=== PATIENT | female | born 1995 | race Caucasian/White ===

== ENCOUNTER 2023-01-20 10:46 | Inpatient (IN) | payer OTHER ==
[2023-01-20] MEDS ORDERED: SODIUM CHLORIDE 0.9% 500 ML INFUS.BAG IV ONE ×2 (10:54→12:48)
[2023-01-20] MEDS ORDERED: ONDANSETRON 4 MG/2 ML VIAL IVPUSH ONE ×2 (11:17→13:39)
[2023-01-20] MEDS ORDERED: ONDANSETRON 4 MG/2 ML VIAL ONE ×5 (11:18→19:22)
[2023-01-20] MEDS ORDERED: FENTANYL CITRATE/PF 50 MCG/ML VIAL ONE ×2 (11:18→12:40)
[2023-01-20 11:49] LABS: BASO % 0.2 % (0-2.0); EOS % 0.2 % (0-4.5); HEMATOCRIT 36.9 % (32.4-45.2); HEMOGLOBIN 12.8 GM/dL (10.7-15.3); LYMPH % 25.7 % (8-40); MCH 31.2 pg (25.7-33.7); MCHC 34.6 g/dl (32.0-36.0); MEAN PLT VOLUME 9.5 fl (7.5-11.1); MONO % 6.7 % (3.8-10.2); NEUT % 67.2 % (42.8-82.8); PLATELET COUNT 268 10^3/uL (134-434); RDW 12.6 % (11.6-15.6); WHITE BLOOD COUNT 9.9 K/mm3 (4.0-10.0)
[2023-01-20 11:58] LABS: ACTIVATED PTT 32.5 SECONDS (25.2-36.5); INR 1.14 (0.83-1.09); PROTHROMBIN TIME (PATIENT) 13.2 SEC (9.7-13.0)
[2023-01-20 12:08] LABS: POTASSIUM 3.7 mmol/L (3.5-5.1)
[2023-01-20 12:10] LABS: CALCIUM 9.3 mg/dL (8.5-10.1)
[2023-01-20 12:11] LABS: ALBUMIN 4.1 g/dl (3.4-5.0); BLOOD UREA NITROGEN 9.6 mg/dL (7-18); MAGNESIUM 2.2 mg/dL (1.8-2.4)
[2023-01-20 12:13] LABS: CREATININE 0.5 mg/dL (0.55-1.3)
[2023-01-20 12:15] LABS: BILIRUBIN,TOTAL 0.5 mg/dL (0.2-1)
[2023-01-20] MEDS ORDERED: BUPIVACAINE HCL/PF 0.5% (5MG/ML) 10 ML VIAL ONE (14:33)
[2023-01-20] MEDS ORDERED: ROCURONIUM BROMIDE 50 MG/5 ML SYRINGE ONE (14:46)
[2023-01-20] MEDS ORDERED: PROPOFOL 20 ML ONE (14:46)
[2023-01-20] MEDS ORDERED: SUCCINYLCHOLINE CHLORIDE 200 MG/10 ML SYRINGE ONE (14:46)
[2023-01-20] MEDS ORDERED: LIDOCAINE HCL/PF 2% SDV 5ML VIAL ONE (14:47)
[2023-01-20] MEDS ORDERED: ETOMIDATE 20 MG/10 ML VIAL IVPUSH ONE (14:56)
[2023-01-20] MEDS ORDERED: DEXAMETHASONE SOD PHOSPHATE 4 MG/1 ML VIAL ONE ×2 (15:40→22:19)
[2023-01-20 15:47] LABS: INR 1.68 (0.83-1.09); PROTHROMBIN TIME (PATIENT) 19.4 SEC (9.7-13.0)
[2023-01-20 15:51] LABS: BASO % 0.1 % (0-2.0); HEMATOCRIT 18.9 % (32.4-45.2); LYMPH % 5.3 % (8-40); MCH 29.7 pg (25.7-33.7); MCHC 33.4 g/dl (32.0-36.0); MEAN CELL VOLUME 88.9 fl (80-96); MEAN PLT VOLUME 9.1 fl (7.5-11.1); MONO % 3.2 % (3.8-10.2); NEUT % 91.4 % (42.8-82.8); PLATELET COUNT 157 10^3/uL (134-434); RBC 2.13 M/mm3 (3.60-5.2); WHITE BLOOD COUNT 16.6 K/mm3 (4.0-10.0)
[2023-01-20 15:57] LABS: HEMOGLOBIN 6.3 GM/dL (10.7-15.3)
[2023-01-20] MEDS ORDERED: GLYCOPYRROLATE 0.2 MG/1 ML VIAL ONE (16:26)
[2023-01-20] MEDS ORDERED: NEOSTIGMINE METHYLSULFATE 0.5 MG/1 ML - 10 ML MDV ONE (16:26)
[2023-01-20 16:33] LABS: LACTIC ACID 2.7 mmol/L (0.4-2.0)
[2023-01-20 17:48] LABS: ANISOCYTOSIS 1+; MACROCYTOSIS 0
[2023-01-20] MEDS ORDERED: ACETAMINOPHEN INJECTION 100 ML IVPB ONE (17:56)
[2023-01-20] MEDS ORDERED: IBUPROFEN 800 MG/8 ML IJ IVPB PRN (18:40)
[2023-01-20] MEDS ORDERED: IBUPROFEN 600 MG TABLET (FP) PO PRN (18:40)
[2023-01-20] MEDS ORDERED: ONDANSETRON 4 MG/2 ML VIAL IVPUSH PRN ×2 (18:40→18:47)
[2023-01-20] MEDS ORDERED: DEXAMETHASONE SOD PHOSPHATE 20 MG/5 ML VIAL IVPB ONE (22:32)
[2023-01-20] MEDS: ELECTROLYTE-148 SOLN 1,000 ML IV SCH (23:52)
[2023-01-20] MEDS: oxyCODONE HCL 5 MG TABLET PO PRN (23:52)
[2023-01-21 01:24] LABS: HEMATOCRIT 35.8 % (32.4-45.2); HEMOGLOBIN 12.4 GM/dL (10.7-15.3); MCH 29.8 pg (25.7-33.7); MCHC 34.7 g/dl (32.0-36.0); MEAN PLT VOLUME 9.4 fl (7.5-11.1); PLATELET COUNT 117 10^3/uL (134-434); RBC 4.16 M/mm3 (3.60-5.2); RDW 14.2 % (11.6-15.6); WHITE BLOOD COUNT 16.7 K/mm3 (4.0-10.0)
[2023-01-21 01:47] VITALS: RESP 20
[2023-01-21 04:46] VITALS: BMI 26.6
[2023-01-21] MEDS: ELECTROLYTE-148 SOLN 1,000 ML IV SCH (06:46)
[2023-01-21] MEDS: oxyCODONE HCL 5 MG TABLET PO PRN (06:51)
[2023-01-21 10:55] LABS: BASO % 0.1 % (0-2.0); HEMATOCRIT 25.9 % (32.4-45.2); HEMOGLOBIN 9.1 GM/dL (10.7-15.3); LYMPH % 9.6 % (8-40); MCH 30.5 pg (25.7-33.7); MCHC 35.3 g/dl (32.0-36.0); MEAN CELL VOLUME 86.6 fl (80-96); MEAN PLT VOLUME 10.1 fl (7.5-11.1); MONO % 8.1 % (3.8-10.2); NEUT % 82.2 % (42.8-82.8); PLATELET COUNT 119 10^3/uL (134-434); RBC 2.99 M/mm3 (3.60-5.2); RDW 14.5 % (11.6-15.6); WHITE BLOOD COUNT 13.3 K/mm3 (4.0-10.0)
[2023-01-21] MEDS: IBUPROFEN 600 MG TABLET (FP) PO PRN ×2 (11:24→19:36)
[2023-01-21] MEDS ORDERED: INSULIN (NOVOLOG) ASPART 100 UNITS/ML 10ML VIAL ONE (11:45)
[2023-01-21 14:55] LABS: HEMATOCRIT 33.5 % (32.4-45.2); HEMOGLOBIN 11.9 GM/dL (10.7-15.3); MCH 30.5 pg (25.7-33.7); MCHC 35.6 g/dl (32.0-36.0); MEAN CELL VOLUME 85.6 fl (80-96); MEAN PLT VOLUME 9.8 fl (7.5-11.1); PLATELET COUNT 166 10^3/uL (134-434); RBC 3.91 M/mm3 (3.60-5.2); RDW 14.9 % (11.6-15.6)
[2023-01-21 15:39] LABS: ANISOCYTOSIS 0; HELMET CELLS 0; HOWELL-JOLLY BODIES 0; MACROCYTOSIS 0; OVALOCYTE 0; ROULEAU 0; SICKELED CELLS 0; TARGET CELLS 0; TEAR DROP CELLS 0; TOXIC GRANULATION 0
[2023-01-21 19:29] VITALS: BP 107/55; PULSE 99; TEMP 97.7
[2023-01-21 19:56] LABS: BASO % 0.2 % (0-2.0); EOS % 0.1 % (0-4.5); HEMATOCRIT 28.5 % (32.4-45.2); HEMOGLOBIN 10.1 GM/dL (10.7-15.3); MCH 30.6 pg (25.7-33.7); MCHC 35.6 g/dl (32.0-36.0); MEAN PLT VOLUME 10.1 fl (7.5-11.1); MONO % 8.9 % (3.8-10.2); NEUT % 70.8 % (42.8-82.8); PLATELET COUNT 140 10^3/uL (134-434); RBC 3.32 M/mm3 (3.60-5.2); RDW 14.7 % (11.6-15.6); WHITE BLOOD COUNT 17.9 K/mm3 (4.0-10.0)
== END 2023-01-21 20:42 | disposition home or self-care (01) | DRG 817 ==
LOC: JER 10:46 → JERBED 12:30 → J8W 22:56
PROVIDERS: ADMIT Obstetrics & Gynecology; ATTEND Obstetrics & Gynecology
PROC: 10T24ZZ Resection of Products of Conception, Ectopic, Percutaneous Endoscopic Approach (ICD-10-PCS; 2023-01-20)
PROC: 0UC Female Reproductive System, Extirpation (ICD-10-PCS; principal; 2023-01-20 18:30)
DX: O00.102 Left tubal pregnancy without intrauterine pregnancy (principal); K66.1 Hemoperitoneum
CPT/HCPCS: 0241U-QW; 36415; 36430; 80053; 83605; 83735; 84702; 85025; 85027; 85610; 85730; 86850; 86900; 86901; 86922; 88305-TC; 93005; 93010; 94760; 99291; P9058

== ENCOUNTER 2023-01-24 19:26 | Emergency (ER) | payer OTHER ==
[2023-01-24 19:47] VITALS: BMI 25.2
[2023-01-24] MEDS ORDERED: SODIUM CHLORIDE 0.9% 500 ML INFUS.BAG IV ONE (20:18)
[2023-01-24] MEDS ORDERED: ACETAMINOPHEN 1000 MG/100 ML BAG IVPB ONE (20:40)
[2023-01-24] MEDS ORDERED: ACETAMINOPHEN INJECTION 100 ML IVPB ONE (20:42)
[2023-01-24] MEDS ORDERED: CEFTRIAXONE 1 GM in DEXTROSE 5%-WATER - 50 ML IVPB ONE (20:47)
[2023-01-24] MEDS ORDERED: CEFTRIAXONE 1 GM/50 ML BAG ONE (20:48)
[2023-01-24 21:00] LABS: BASO % 0.2 % (0-2.0); EOS % 1.2 % (0-4.5); HEMATOCRIT 32.3 % (32.4-45.2); HEMOGLOBIN 11.3 GM/dL (10.7-15.3); LYMPH % 17.1 % (8-40); MCH 30.8 pg (25.7-33.7); MEAN CELL VOLUME 87.9 fl (80-96); MEAN PLT VOLUME 9.9 fl (7.5-11.1); NEUT % 71.5 % (42.8-82.8); PLATELET COUNT 194 10^3/uL (134-434); RBC 3.68 M/mm3 (3.60-5.2); RDW 13.6 % (11.6-15.6)
[2023-01-24 21:14] LABS: POTASSIUM 4.3 mmol/L (3.5-5.1)
[2023-01-24 21:16] LABS: CALCIUM 8.9 mg/dL (8.5-10.1)
[2023-01-24 21:17] LABS: BLOOD UREA NITROGEN 8.9 mg/dL (7-18)
[2023-01-24 21:20] LABS: CREATININE 0.6 mg/dL (0.55-1.3)
[2023-01-24 21:21] LABS: TOT PROT 6.5 g/dl (6.4-8.2)
[2023-01-24 21:22] LABS: BILIRUBIN,TOTAL 0.7 mg/dL (0.2-1)
[2023-01-24 21:35] LABS: ALBUMIN 3.2 g/dl (3.4-5.0)
[2023-01-24 22:05] LABS: URINE APPEARANCE CLEAR; URINE BILIRUBIN NEGATIVE (NEGATIVE); URINE COLOR YELLOW; URINE GLUCOSE (UA) NEGATIVE (NEGATIVE); URINE KETONE NEGATIVE (NEGATIVE); URINE LEUK ESTERASE NEGATIVE (NEGATIVE); URINE NITRITE NEGATIVE (NEGATIVE); URINE PROTEIN NEGATIVE (NEGATIVE); URINE UROBILINOGEN 0.2 mg/dL (0.2-1.0)
[2023-01-24 22:28] LABS: URINE RBC 15.7 /uL (0-23.9)
[2023-01-24 22:29] LABS: EPI CELLS 9.2 /uL (0-25.1); HYALINE CASTS 0.28 /uL (0-3.1); URINE BACTERIA 141.9 /uL (0-1359)
[2023-01-24 23:57] VITALS: BP 102/59; PULSE 77; RESP 16; TEMP 98.8
[2023-01-25] MEDS ORDERED: CEPHALEXIN MONOHYDRATE 500 MG CAPSULE (UD) PO ONE (01:16)
[2023-01-25] MEDS ORDERED: CEPHALEXIN MONOHYDRATE 500 MG CAPSULE (UD) ONE (01:19)
== END 2023-01-25 01:26 | disposition home or self-care (01) ==
LOC: JER 19:26
PROC: 3E03329 Introduction of Other Anti-infective into Peripheral Vein, Percutaneous Approach (ICD-10-PCS; principal; 2023-01-24)
PROC: 3E033NZ Introduction of Analgesics, Hypnotics, Sedatives into Peripheral Vein, Percutaneous Approach (ICD-10-PCS; 2023-01-24)
DX: R50.9 Fever, unspecified (principal); R11.0 Nausea; R30.0 Dysuria; R35.0 Frequency of micturition; R10.30 Lower abdominal pain, unspecified; N39.0 Urinary tract infection, site not specified; Z20.822 Contact with and (suspected) exposure to COVID-19
CPT/HCPCS: 0241U-QW; 36415; 71045-TC-FY; 74177-TC; 80053; 81003; 85025; 87040; 87086; 99285-25; Q9967

== ENCOUNTER 2024-05-11 06:57 | Inpatient (IN) | payer OTHER ==
[2024-05-11] MEDS: ELECTROLYTE-148 SOLN 1,000 ML IV SCH (07:50)
[2024-05-11 08:26] VITALS: BMI 33.6
[2024-05-11 08:43] LABS: INR 0.94 (0.83-1.09); PROTHROMBIN TIME (PATIENT) 10.8 SEC (9.7-13.0)
[2024-05-11 08:45] LABS: BASO % 0.2 % (0-2.0); EOS % 0.5 % (0-4.5); HEMATOCRIT 35.8 % (32.4-45.2); HEMOGLOBIN 12.5 GM/dL (10.7-15.3); LYMPH % 20.1 % (8-40); MCH 31.4 pg (25.7-33.7); MCHC 34.8 g/dl (32.0-36.0); MEAN CELL VOLUME 90.3 fl (80-96); MONO % 7.9 % (3.8-10.2); NEUT % 71.3 % (42.8-82.8); PLATELET COUNT 154 10^3/uL (134-434); RBC 3.97 M/mm3 (3.60-5.2); RDW 14.8 % (11.6-15.6); WHITE BLOOD COUNT 12.3 K/mm3 (4.0-10.0)
[2024-05-11 08:46] LABS: ACTIVATED PTT 25.6 SECONDS (25.2-36.5)
[2024-05-11 09:08] LABS: CALCIUM 8.9 mg/dL (8.5-10.1); POTASSIUM 3.7 mmol/L (3.5-5.1)
[2024-05-11 09:10] LABS: BLOOD UREA NITROGEN 11.6 mg/dL (7-18)
[2024-05-11 09:13] LABS: CREATININE 0.6 mg/dL (0.55-1.3)
[2024-05-11] MEDS: OXYTOCIN 30 UNITS in 0.9% NS 30 UNIT/500 ML INFUS.BAG IVPB SCH (10:15)
[2024-05-11] MEDS ORDERED: OXYTOCIN 30 UNITS in 0.9% NS 30 UNIT/500 ML INFUS.BAG IVPB ONE (10:16)
[2024-05-11 12:39] LABS: SYPHILIS W/ RPR CONF NON-REACTIVE (NONREACTIVE)
[2024-05-11] MEDS ORDERED: FENTANYL/BUPIVACAINE/NS/PF - PCEA - 50 ML DISP.SYRIN EP ONE ×2 (13:05→17:54)
[2024-05-11 13:08] LABS: HIV INTERPRETATION NEGATIVE (NEGATIVE)
[2024-05-11] MEDS: FENTANYL/BUPIVACAINE/NS/PF - PCEA - 50 ML DISP.SYRIN EP SCH (13:45)
[2024-05-11] MEDS ORDERED: NALOXONE HCL 0.4 MG/ML VIAL IVPUSH PRN (14:43)
[2024-05-11] MEDS ORDERED: FENTANYL CITRATE/PF 50 MCG/ML VIAL ONE ×3 (20:33→20:57)
[2024-05-11] MEDS ORDERED: morphine SULFATE/PF 1 MG/2 ML (2cc Syringe - QUVA) ONE ×3 (20:49)
[2024-05-11 21:04] LABS: CORD HCO3 24.8 mmHg (20-29); CORD PCO2 47.4 mmHg (30-78); CORD pH 7.336 (7.14-7.44)
[2024-05-11 21:05] LABS: CORD BASE EXCESS -0.7 mmol/L (0-2); CORD PCO2 39.9 mmHg (30-78); CORD pH 7.397 (7.14-7.44)
[2024-05-11] MEDS ORDERED: SODIUM BICARBONATE 8.4% 50 MEQ/50 ML VIAL ONE (21:17)
[2024-05-11] MEDS ORDERED: WITCH HAZEL 50% (TUCKS) 40 PAD/JAR PAD TP PRN (21:35)
[2024-05-11] MEDS ORDERED: BENZOCAINE 20% 57 GM BOTTLE TP PRN (21:35)
[2024-05-11] MEDS ORDERED: BENZOCAINE 28 GM HEMORRHOIDAL OINTMENT TP PRN (21:35)
[2024-05-11] MEDS ORDERED: METHYLERGONOVINE MALEATE 0.2 MG/1 ML AMP IM PRN (21:35)
[2024-05-11] MEDS ORDERED: ONDANSETRON 4 MG/2 ML VIAL IVPUSH PRN (21:50)
[2024-05-12] MEDS: OXYTOCIN 20 UNITS in 0.9% NS 20 UNIT/1,000 ML INFUS.BAG IV SCH (00:25)
[2024-05-12] MEDS: CEFAZOLIN 1 GM in DEXTROSE 5%-WATER - 50 ML IVPB SCH (01:44)
[2024-05-12] MEDS: IBUPROFEN 800 MG/8 ML IJ IVPB PRN (05:36)
[2024-05-12 07:53] LABS: BASO % 0.1 % (0-2.0); EOS % 0.1 % (0-4.5); HEMATOCRIT 31.8 % (32.4-45.2); HEMOGLOBIN 10.7 GM/dL (10.7-15.3); LYMPH % 11.5 % (8-40); MCH 30.8 pg (25.7-33.7); MCHC 33.7 g/dl (32.0-36.0); MEAN CELL VOLUME 91.5 fl (80-96); MEAN PLT VOLUME 10.4 fl (7.5-11.1); NEUT % 82.3 % (42.8-82.8); PLATELET COUNT 143 10^3/uL (134-434); RBC 3.47 M/mm3 (3.60-5.2); RDW 14.9 % (11.6-15.6); WHITE BLOOD COUNT 17.4 K/mm3 (4.0-10.0)
[2024-05-12] MEDS: morphine SULFATE/PF 1 MG/2 ML (2cc Syringe - QUVA) EP ONE (08:34)
[2024-05-12] MEDS: PRENATAL VITAMINS W/ FOLIC ACID TABLET (FP) PO SCH (09:28)
[2024-05-12] MEDS: ENOXAPARIN NA (PORCINE) 30 MG/0.3 ML DISP.SYRIN SQ SCH (09:28)
[2024-05-12] MEDS: SIMETHICONE 80 MG TAB.CHEW (FP) PO PRN (09:28)
[2024-05-12] MEDS ORDERED: oxyCODONE HCL 5 MG TABLET PO PRN ×2 (09:35)
[2024-05-12] MEDS: IBUPROFEN 600 MG TABLET (FP) PO PRN (13:44)
[2024-05-12] MEDS: ACETAMINOPHEN 325 MG TABLET (FP) PO PRN (17:30)
[2024-05-12] MEDS ORDERED: BISACODYL 10 MG SUPP.RECT RC PRN (21:35)
[2024-05-12] MEDS: SENNOSIDES/DOCUSATE COMBO (SENNA PLUS) TABLET (UD) PO PRN (21:50)
[2024-05-14 07:59] LABS: BASO % 0.2 % (0-2.0); EOS % 1.3 % (0-4.5); HEMATOCRIT 30.1 % (32.4-45.2); HEMOGLOBIN 10.1 GM/dL (10.7-15.3); LYMPH % 11.7 % (8-40); MCH 31.1 pg (25.7-33.7); MCHC 33.4 g/dl (32.0-36.0); MEAN CELL VOLUME 93.1 fl (80-96); MEAN PLT VOLUME 10.1 fl (7.5-11.1); MONO % 6.6 % (3.8-10.2); NEUT % 80.2 % (42.8-82.8); PLATELET COUNT 152 10^3/uL (134-434); RBC 3.23 M/mm3 (3.60-5.2); RDW 14.8 % (11.6-15.6); WHITE BLOOD COUNT 14.7 K/mm3 (4.0-10.0)
[2024-05-14 08:49] VITALS: BP 90/60; PULSE 87; RESP 14; TEMP 98.2
== END 2024-05-14 13:35 | disposition home or self-care (01) | DRG 788 ==
LOC: JLDR 06:57 → J3W 05-12 00:15
PROVIDERS: ADMIT Obstetrics & Gynecology; ATTEND Obstetrics & Gynecology
PROC: 10D00Z1 Extraction of Products of Conception, Low, Open Approach (ICD-10-PCS; principal; 2024-05-11)
DX: O48.0 Post-term pregnancy (principal); Z3A.41 41 weeks gestation of pregnancy; Z37.0 Single live birth; O62.1 Secondary uterine inertia; O76 Abnormality in fetal heart rate and rhythm complicating labor and delivery
CPT/HCPCS: 36415; 36600; 80048; 82803; 85025; 85610; 85730; 86780; 86850; 86900; 86901; 87389; 88307-TC

== ENCOUNTER 2024-05-23 13:15 | Emergency (ER) | payer OTHER ==
[2024-05-23 13:32] VITALS: RESP 20; BMI 31.8
[2024-05-23 14:45] LABS: BASO % 0.5 % (0-2.0); EOS % 1.3 % (0-4.5); HEMATOCRIT 33.1 % (32.4-45.2); LYMPH % 20.3 % (8-40); MCH 30.2 pg (25.7-33.7); MCHC 33.2 g/dl (32.0-36.0); MEAN PLT VOLUME 7.5 fl (7.5-11.1); MONO % 5.8 % (3.8-10.2); NEUT % 72.1 % (42.8-82.8); PLATELET COUNT 363 10^3/uL (134-434); RBC 3.64 M/mm3 (3.60-5.2); RDW 14.6 % (11.6-15.6); WHITE BLOOD COUNT 13.2 K/mm3 (4.0-10.0)
[2024-05-23] MEDS ORDERED: CLINDAMYCIN 600MG PREMIX IVPB 600 MG/50 ML BAG IVPB ONE (15:06)
[2024-05-23 15:12] LABS: POTASSIUM 3.9 mmol/L (3.5-5.1)
[2024-05-23 15:14] LABS: CALCIUM 9.4 mg/dL (8.5-10.1)
[2024-05-23 15:15] LABS: ALBUMIN 2.6 g/dl (3.4-5.0); BLOOD UREA NITROGEN 13.6 mg/dL (7-18)
[2024-05-23] MEDS: CLINDAMYCIN 600MG PREMIX IVPB 600 MG/50 ML BAG IVPB ONE (15:15)
[2024-05-23 15:18] LABS: CREATININE 0.6 mg/dL (0.55-1.3)
[2024-05-23 15:20] LABS: BILIRUBIN,TOTAL 0.2 mg/dL (0.2-1); TOT PROT 6.6 g/dl (6.4-8.2)
[2024-05-23 17:34] VITALS: BP 118/73; PULSE 99; TEMP 98.4
== END 2024-05-23 17:34 | disposition home or self-care (01) ==
LOC: JER 13:15
DX: O86.01 Infection of obstetric surgical wound, superficial incisional site (principal); R50.9 Fever, unspecified
CPT/HCPCS: 36415; 71275-TC; 80053; 85025; 93005; 93010; 99284-25; Q9967

== ENCOUNTER 2024-05-26 14:47 | Inpatient (IN) | payer OTHER ==
[2024-05-26] MEDS ORDERED: VANCOMYCIN 1 GRAM (PRE-DOCKED) 1,000 MG/250 ML BAG IVPB ONE (16:18)
[2024-05-26] MEDS: VANCOMYCIN 1,000 MG in DEXTROSE 5%-WATER - 250 ML IVPB ONE (16:30)
[2024-05-26 16:41] LABS: INR 1.05 (0.83-1.09); PROTHROMBIN TIME (PATIENT) 11.8 SEC (9.7-13.0)
[2024-05-26 16:42] LABS: BASO % 0.4 % (0-2.0); EOS % 1.4 % (0-4.5); HEMATOCRIT 34.7 % (32.4-45.2); HEMOGLOBIN 11.4 GM/dL (10.7-15.3); LYMPH % 26.4 % (8-40); MCH 30.2 pg (25.7-33.7); MCHC 32.8 g/dl (32.0-36.0); MEAN CELL VOLUME 92.1 fl (80-96); MEAN PLT VOLUME 8.2 fl (7.5-11.1); MONO % 5.8 % (3.8-10.2); PLATELET COUNT 409 10^3/uL (134-434); RBC 3.77 M/mm3 (3.60-5.2); RDW 14.2 % (11.6-15.6); WHITE BLOOD COUNT 11.7 K/mm3 (4.0-10.0)
[2024-05-26 16:43] LABS: ACTIVATED PTT 33.2 SECONDS (25.2-36.5)
[2024-05-26 16:50] LABS: BLOOD UREA NITROGEN 13.1 mg/dL (7-18); CALCIUM 9.8 mg/dL (8.5-10.1)
[2024-05-26 16:53] LABS: CREATININE 0.6 mg/dL (0.55-1.3)
[2024-05-26 16:55] LABS: BILIRUBIN,TOTAL 0.2 mg/dL (0.2-1); TOT PROT 7.1 g/dl (6.4-8.2)
[2024-05-26] MEDS ORDERED: MIDAZOLAM HCL 2 MG/2 ML SINGLE DOSE VIAL ONE (17:57)
[2024-05-26] MEDS: SODIUM CHLORIDE 1,000 ML IV STA (18:02)
[2024-05-26] MEDS ORDERED: diphenhydrAMINE HCL 25 MG CAPSULE (FP) PO ONE (18:03)
[2024-05-26] MEDS: diphenhydrAMINE HCL 25 MG CAPSULE (FP) PO ONE (18:07)
[2024-05-26] MEDS ORDERED: IBUPROFEN 800 MG/8 ML IJ IVPB PRN (18:37)
[2024-05-26 22:09] VITALS: BMI 31.6
[2024-05-27] MEDS: CLINDAMYCIN 600MG PREMIX IVPB 600 MG/50 ML BAG IVPB SCH (01:22)
[2024-05-27] MEDS ORDERED: VANCOMYCIN/WATER FOR INJ (PEG) 1,000 MG/200 ML BAG IVPB SCH (06:00)
[2024-05-27] MEDS ORDERED: VANCOMYCIN 1,000 MG in DEXTROSE 5%-WATER - 250 ML IVPB SCH (06:00)
[2024-05-27] MEDS: GENTAMICIN INJECTION 100 MG in SODIUM CHLORIDE 97.5 ML IVPB ONE (08:12)
[2024-05-27 10:24] LABS: BASO % 0.5 % (0-2.0); EOS % 1.6 % (0-4.5); HEMATOCRIT 32.5 % (32.4-45.2); LYMPH % 30.8 % (8-40); MCH 30.9 pg (25.7-33.7); MCHC 33.9 g/dl (32.0-36.0); MEAN PLT VOLUME 8.3 fl (7.5-11.1); MONO % 5.9 % (3.8-10.2); NEUT % 61.2 % (42.8-82.8); PLATELET COUNT 330 10^3/uL (134-434); RBC 3.57 M/mm3 (3.60-5.2); RDW 14.4 % (11.6-15.6); WHITE BLOOD COUNT 8.8 K/mm3 (4.0-10.0)
[2024-05-27 10:51] LABS: POTASSIUM 4.1 mmol/L (3.5-5.1)
[2024-05-27 10:54] LABS: CALCIUM 8.9 mg/dL (8.5-10.1)
[2024-05-27 10:55] LABS: ALBUMIN 2.7 g/dl (3.4-5.0); BLOOD UREA NITROGEN 15.1 mg/dL (7-18); MAGNESIUM 2.1 mg/dL (1.8-2.4)
[2024-05-27 10:58] LABS: CREATININE 0.6 mg/dL (0.55-1.3)
[2024-05-27 10:59] LABS: BILIRUBIN,TOTAL 0.4 mg/dL (0.2-1); PHOSPHOROUS 3.9 mg/dL (2.5-4.9); TOT PROT 6.5 g/dl (6.4-8.2)
[2024-05-27] MEDS: LINEZOLID 600 MG PREMIX BAG 600 MG/300 ML BAG IVPB SCH (13:27)
[2024-05-27] MEDS: ENOXAPARIN NA (PORCINE) 40 MG/0.4 ML DISP.SYRIN SQ SCH ×2 (13:27→19:09)
[2024-05-27] MEDS: ACETAMINOPHEN 325 MG TABLET (FP) PO PRN (15:21)
[2024-05-27] MEDS: PRENATAL VITAMINS W/ FOLIC ACID TABLET (FP) PO SCH (19:41)
[2024-05-28 09:50] LABS: HEMATOCRIT 34.8 % (32.4-45.2); HEMOGLOBIN 11.8 GM/dL (10.7-15.3); MCH 30.7 pg (25.7-33.7); MCHC 33.9 g/dl (32.0-36.0); MEAN CELL VOLUME 90.6 fl (80-96); MEAN PLT VOLUME 8.4 fl (7.5-11.1); PLATELET COUNT 355 10^3/uL (134-434); RBC 3.84 M/mm3 (3.60-5.2); RDW 14.6 % (11.6-15.6); WHITE BLOOD COUNT 9.2 K/mm3 (4.0-10.0)
[2024-05-28 10:07] LABS: POTASSIUM 4.2 mmol/L (3.5-5.1)
[2024-05-28 10:09] LABS: ALBUMIN 2.9 g/dl (3.4-5.0); BLOOD UREA NITROGEN 12.9 mg/dL (7-18); CALCIUM 9.2 mg/dL (8.5-10.1)
[2024-05-28 10:12] LABS: CREATININE 0.7 mg/dL (0.55-1.3)
[2024-05-28 10:14] LABS: BILIRUBIN,TOTAL 0.4 mg/dL (0.2-1); TOT PROT 6.8 g/dl (6.4-8.2)
[2024-05-28 14:26] VITALS: BP 107/60; PULSE 60; RESP 18; TEMP 97.8
[2024-05-28] MEDS: LINEZOLID 600 MG TABLET (RESTRICTED TO ID) PO ONE (17:21)
== END 2024-05-28 18:38 | disposition home or self-care (01) | DRG 776 ==
LOC: JER 14:47 → JERBED 15:17 → J6S 19:14
PROVIDERS: ATTEND Internal Medicine
DX: O86.01 Infection of obstetric surgical wound, superficial incisional site (principal); B95.62 Methicillin resistant Staphylococcus aureus infection as the cause of diseases classified elsewhere; O90.89 Other complications of the puerperium, not elsewhere classified; L27.1 Localized skin eruption due to drugs and medicaments taken internally; T36.8X5A Adverse effect of other systemic antibiotics, initial encounter; R50.9 Fever, unspecified
CPT/HCPCS: 0241U-QW; 36415; 72192-TC; 76705-TC; 80053; 82550; 83605; 83735; 84100; 85025; 85027; 85610; 85730; 86140; 87040; 99285-25; G0378